=== PATIENT | male | born 1950 | race Caucasian/White ===

== ENCOUNTER 2016-12-20 08:37 | Emergency (ER) | payer OTHER ==
[~2016-12-20] VITALS: Ht 172.7 cm; Wt 88.5 kg
[2016-12-20] MEDS ORDERED: NACL 0.9% 1,000 ML IV ONE ×2 (08:47→09:15)
[2016-12-20 08:49] VITALS: BP 181/117; PULSE 87; RESP 22; O2SAT 97
--- NOTE | 2016-12-20 08:49 | NUR ---
Pt report given to JOSH Salmeron.
--- NOTE | 2016-12-20 08:50 | NUR ---
Dr. Fontenot at bedside to assess pt.
--- NOTE | 2016-12-20 09:04 | NUR ---
WAGGONER CATHETER WAS PLACED WITH 500ML CLEAR YELLOW URINE COLLECTED, A SAMPLE WAS SENT TO THE LAB.
--- NOTE | 2016-12-20 09:04 | NUR ---
ER Dr. GARCIA at bedside examining patient.
[2016-12-20 09:13] LABS: BILIRUBIN,URINE NEGATIVE (NEGATIVE); BLOOD, URINE 2+ (NEGATIVE); COLOR,URINE YELLOW (YELLOW); GLUCOSE,URINE NEGATIVE (NEGATIVE); KETONES,URINE NEGATIVE (NEGATIVE); LEUKOCYTE ESTERASE ,URINE NEGATIVE (NEGATIVE); NITRITE, URINE NEGATIVE (NEGATIVE); PROTEIN URINE NEGATIVE (NEGATIVE); UROBILINOGEN,URINE 0.2 (0.2-1.0)
--- NOTE | 2016-12-20 09:18 | NUR ---
IV WAS PLACED IN RIGHT FOREARM 20G WITH NS BOLUSING
[2016-12-20 09:21] LABS: CLARITY/URINE SLIGHTLY HAZY (CLEAR)
[2016-12-20 09:23] LABS: BACTERIA,URINE FEW /HPF (None Seen); MUCUS,URINE None Seen /LPF (None Seen); RBC,URINE 50-80 /HPF (0-3); WBC,URINE 0-3 /HPF (0-3)
[2016-12-20 09:26] LABS: CALCIUM 8.8 mg/dL (8.4-11.0); CREATININE 1.2 mg/dL (0.55-1.30); POTASSIUM 4.2 mmol/L (3.5-5.1)
[2016-12-20 09:29] LABS: PROTHROMBIN TIME 10.8 SECS (9.5-12.5)
[2016-12-20 09:30] LABS: ALBUMIN 4.1 g/dL (3.4-4.8); TOTAL BILIRUBIN 1.1 mg/dL (0.0-1.0); TOTAL PROTEIN, SERUM 7.4 g/dL (6.4-8.3)
[2016-12-20 09:33] LABS: BASOPHILS # (AUTO) 0.1 K/uL (0.0-0.2); BASOPHILS % (AUTO) 0.8 % (0.0-2.0); EOSINOPHILS # (AUTO) 0.2 K/uL (0.0-0.4); EOSINOPHILS % (AUTO) 2.2 % (0.0-4.0); HEMATOCRIT 43.9 % (36-54); HEMOGLOBIN 13.3 g/dL (14.0-18.0); LYMPHOCYTES # (AUTO) 2.1 K/uL (1.0-5.5); LYMPHOCYTES % (AUTO) 26.3 % (20.5-51.5); MEAN CORPUSCULAR HEMOGLOBIN 19 pg (27-31); MEAN CORPUSCULAR HGB CONC 30 % (32-36); MEAN CORPUSCULAR VOLUME 62 fL (79.0-98.0); MONOCYTES # (AUTO) 0.5 K/uL (0.0-1.0); NEUTROPHILS % (AUTO) 64.7 % (40.0-70.0); PLATELET COUNT (AUTO) 238 K/uL (130-430); RED CELL DISTRIBUTION WIDTH 15.6 % (9.0-15.0); WHITE BLOOD COUNT (AUTO) 7.9 K/uL (4.8-10.8)
--- NOTE | 2016-12-20 10:45 | NUR ---
EMPTIED WAGGONER 500 URINE OUTPUT, CLEAR IN COLOR.
--- NOTE | 2016-12-20 10:52 | NUR ---
PATIENT IS ON 2ND BOLUS BAG AND TOLERATING IT WELL. THE WAGGONER WAS EMPTIED AGAIN AND 500ML CLEAR YELLOW URINE WAS REMOVED.
--- NOTE | 2016-12-20 11:30 | NUR ---
Mcgrath changed out to leg bag, tolerated, condition stable for D/C.
--- NOTE | 2016-12-20 12:31 | NUR ---
Patient given written and verbal discharge instructions and verbalizes understanding. ER MD discussed with patient the results and treatment provided. Given copies of tests performed in ER. Patient in stable condition. ID arm band removed. IV catheter removed intact and dressing applied, no active bleeding. Rx of KEFLEX AND TYLENOL given. Patient educated on pain management and to follow up with PMD. Pain Scale 0. Opportunity for questions provided and answered.
[2016-12-20 12:33] VITALS: BP 160/78; PULSE 87; RESP 19; TEMP 97.4; O2SAT 98
== END 2016-12-20 12:33 | disposition home or self-care (01) ==
LOC: SED 08:37
DX: R10.30 Lower abdominal pain, unspecified (principal); R33.9 Retention of urine, unspecified; E11.9 Type 2 diabetes mellitus without complications; I10 Essential (primary) hypertension
CPT/HCPCS: 36415; 51702; 80053; 81000; 82150; 83690; 85025; 85610; 85730; 96360; 96361; 99285; J7030; 99284

== ENCOUNTER 2016-12-22 10:11 | Emergency (ER) | payer OTHER ==
[~2016-12-22] VITALS: Ht 172.7 cm; Wt 88.5 kg
[2016-12-22 10:25] VITALS: BP_SYST 154
--- NOTE | 2016-12-22 11:20 | NUR ---
BROUGHT BACK TO BED #6 AND REPORT GIVEN TO LESLY
--- NOTE | 2016-12-22 11:27 | NUR ---
DR ALCANTAR AT BEDSIDE FOR EVALUATION
--- NOTE | 2016-12-22 11:32 | NUR ---
pt here for recinos cathter removal,no physical complaint.
--- NOTE | 2016-12-22 12:16 | NUR ---
recinos and leg bag removaled.cathter intact.mild blood coming out from catheter.urine obtained and sent to lab.
[2016-12-22 12:20] VITALS: BP_SYST 134
--- NOTE | 2016-12-22 12:20 | NUR ---
Patient given written and verbal discharge instructions and verbalizes understanding. ER MD Castro discussed with patient the results and treatment provided. Patient in stable condition. ID arm band removed. Patient educated on pain management and to follow up with PMD. Pain Scale 0/10. Opportunity for questions provided and answered.
[2016-12-22 12:24] LABS: BILIRUBIN,URINE NEGATIVE (NEGATIVE); BLOOD, URINE 3+ (NEGATIVE); CLARITY/URINE SL CLOUDY (CLEAR); COLOR,URINE YELLOW (YELLOW); GLUCOSE,URINE 3+ (NEGATIVE); KETONES,URINE NEGATIVE (NEGATIVE); LEUKOCYTE ESTERASE ,URINE NEGATIVE (NEGATIVE); NITRITE, URINE NEGATIVE (NEGATIVE); PROTEIN URINE 2+ (NEGATIVE); UROBILINOGEN,URINE 0.2 (0.2-1.0)
[2016-12-22 13:18] LABS: BACTERIA,URINE RARE /HPF (None Seen); RBC,URINE >100 /HPF (0-3); WBC,URINE NONE SEEN /HPF (0-3)
[2016-12-22 13:19] LABS: MUCUS,URINE None Seen /LPF (None Seen)
== END 2016-12-22 12:20 | disposition home or self-care (01) ==
LOC: SED 10:11
DX: R33.9 Retention of urine, unspecified (principal); R14.0 Abdominal distension (gaseous); E11.9 Type 2 diabetes mellitus without complications; I10 Essential (primary) hypertension
CPT/HCPCS: 81000-TC; 99283

== ENCOUNTER 2020-10-30 13:33 | Emergency (ER) | payer OTHER ==
[~2020-10-30] VITALS: Ht 172.7 cm; Wt 77.1 kg
[2020-10-30 13:44] VITALS: BP_SYST 207
[2020-10-30 15:44] LABS: BASOPHILS % (AUTO) 0.5 % (0.0-2.0); EOSINOPHILS # (AUTO) 0.1 K/uL (0.0-0.4); EOSINOPHILS % (AUTO) 0.7 % (0.0-4.0); HEMATOCRIT 41.3 % (36-54); HEMOGLOBIN 13.2 g/dL (14.0-18.0); LYMPHOCYTES # (AUTO) 1.1 K/uL (1.0-5.5); LYMPHOCYTES % (AUTO) 10.8 % (20.5-51.5); MEAN CORPUSCULAR HEMOGLOBIN 19 pg (27-31); MEAN CORPUSCULAR HGB CONC 32 % (32-36); MEAN CORPUSCULAR VOLUME 59 fL (79.0-98.0); MONOCYTES # (AUTO) 0.4 K/uL (0.0-1.0); MONOCYTES % (AUTO) 3.8 % (1.7-9.3); NEUTROPHILS # (AUTO) 8.4 K/uL (1.8-7.7); NEUTROPHILS % (AUTO) 84.2 % (40.0-70.0); PLATELET COUNT (AUTO) 256 K/uL (130-430); RED BLOOD CELL COUNT(AUTO) 7.01 MIL/uL (4.2-6.2); RED CELL DISTRIBUTION WIDTH 17.1 % (9.0-15.0); WHITE BLOOD COUNT (AUTO) 9.9 K/uL (4.8-10.8)
[2020-10-30 15:59] LABS: CALCIUM 9.2 mg/dL (8.4-11.0); CREATININE 1.59 mg/dL (0.55-1.30); POTASSIUM 5.4 mmol/L (3.5-5.1)
[2020-10-30 16:05] LABS: ALBUMIN 3.9 g/dL (3.4-4.8)
[2020-10-30 16:41] LABS: BILIRUBIN,URINE NEGATIVE (NEGATIVE); BLOOD, URINE 1+ (NEGATIVE); CLARITY/URINE CLEAR (CLEAR); COLOR,URINE YELLOW (YELLOW); GLUCOSE,URINE NEGATIVE (NEGATIVE); KETONES,URINE NEGATIVE (NEGATIVE); LEUKOCYTE ESTERASE ,URINE NEGATIVE (NEGATIVE); NITRITE, URINE NEGATIVE (NEGATIVE); PROTEIN URINE NEGATIVE (NEGATIVE); UROBILINOGEN,URINE 0.2 (0.2-1.0)
[2020-10-30 16:42] LABS: BACTERIA,URINE FEW /HPF (None Seen); MUCUS,URINE None Seen /LPF (None Seen); RBC,URINE 20-50 /HPF (0-3); WBC,URINE 0-3 /HPF (0-3)
[2020-10-30] MEDS ORDERED: SODIUM ZIRCONIUM CYCLOSILICATE 10 GM POWD.PACK PO ONE (17:00)
[2020-10-30 17:39] VITALS: BP_SYST 168
== END 2020-10-30 14:50 | disposition home or self-care (01) ==
LOC: SED 13:33
DX: R33.9 Retention of urine, unspecified (principal); I10 Essential (primary) hypertension; E11.9 Type 2 diabetes mellitus without complications
CPT/HCPCS: 36415; 80053; 81000-TC; 85025; 99284